=== PATIENT | male | born 1970 | race Caucasian/White ===

== ENCOUNTER 2023-07-27 08:51 | Outpatient (CLI) | payer OTHER ==
[~2023-07-27 08:51] MED LIST: ALEVE220 M1 PO; CEFADROXIL500 MG PO; PERCOCET 5/3251 TAB PO
== END 2023-07-27 08:54 | disposition home or self-care (01) ==
LOC: SONOGRAMA 08:51
PROVIDERS: ATTEND Pathology Anatomic Pathology & Clinical Pathology
DX: D34 Benign neoplasm of thyroid gland (principal); E04.9 Nontoxic goiter, unspecified